=== PATIENT | female | born 1965 | race Caucasian/White ===

== ENCOUNTER 2018-09-18 01:49 | Outpatient (CLI) | payer BC, SELFPAY ==
[2018-09-18 14:46] LABS: Cholesterol 181 mg/dL (50-200); Glucose 91 mg/dL (70-100); HDL Cholesterol 68 mg/dL (40-60); LDL CHOLESTEROL 99 mg/dL (<100); Triglyceride 66 mg/dL (30-150)
== END 2018-09-18 02:09 ==
PROVIDERS: PCP Family Medicine; Visit Provider Obstetrics & Gynecology
DX: Z13.220 Encounter for screening for lipoid disorders (principal); Z13.1 Encounter for screening for diabetes mellitus
CPT/HCPCS: 36415; 80061; 82947; 83721

== ENCOUNTER 2019-07-23 00:28 | Outpatient (CLI) | payer BC, SELFPAY ==
--- NOTE | 2019-07-23 10:40 | DI.MAMMO_ITS ---
SYMPTOM/DIAGNOSIS: SCREENING Z12.39 MAMMOGRAM: 07/23 Mammograms were interpreted according to the usual protocol including computer analysis with CAD system, tomosynthesis and C view imaging. The breasts are heterogeneously dense. No dominant mass or clumped microcalcification is identified in either breast. The current examination is compared with previous examinations including May 2018 and there has been no gross interval change in appearance in comparison with the previous studies. CONCLUSION: No specific evidence of malignancy at this time. Routine screening examinations are suggested at yearly intervals due to the family history of breast carcinoma, Category 1, breast density category C. SA ASSESSMENT OF FINDINGS: Negative. Category 1. Patient will receive a letter notifying them of these results. Bi-RADS category C. The breasts are heterogeneously dense, which may obscure small masses.
== END 2019-07-23 00:48 ==
PROVIDERS: PCP Family Medicine; Visit Provider Obstetrics & Gynecology
DX: Z12.31 Encounter for screening mammogram for malignant neoplasm of breast (principal); Z80.3 Family history of malignant neoplasm of breast
CPT/HCPCS: 77063; 77067

== ENCOUNTER 2019-10-05 07:47 | Outpatient (CLI) | payer BC, SELFPAY ==
[2019-10-05 10:01] LABS: ALT 21 U/L (14-59); AST 10 U/L (15-37); Calculated LDL 101 mg/dL; Cholesterol 180 mg/dL (<200); HDL Cholesterol 71 mg/dL (40-60); Triglyceride 42 mg/dL (<150)
[2019-10-08 06:49] LABS: Vitamin D 25 Total 68.1 ng/ml (30-100)
== END 2019-10-05 08:07 ==
PROVIDERS: PCP Nurse Practitioner Family; Visit Provider Nurse Practitioner Family
DX: Z13.220 Encounter for screening for lipoid disorders (principal); E55.9 Vitamin D deficiency, unspecified
CPT/HCPCS: 36415; 80061; 82306; 84450; 84460

== ENCOUNTER 2020-07-28 01:18 | Outpatient (CLI) | payer BC, SELFPAY ==
--- NOTE | 2020-07-28 | DI.MAMMO_ITS ---
EXAM: MAMMO SCREENING CLINICAL HISTORY: SCREENING,Z12.39 TECHNIQUE: Mammograms were interpreted according to the usual protocol including computer analysis w [employer] CAD system, tomosynthesis and C-view imaging. COMPARISON: FINDINGS: The breasts are heterogeneously dense. No dominant mass or clumped microcalcification identified in either breast. Current examination is compared previous examinations including July 2019 and ere has been no gross interval change appearance comparison previous studies. IMPRESSION: No specific evidence of malignancy at this time. Routine screening examinations are suggested yearl y intervals due to the family history of breast carcinoma. BI-RADS Category 1 - Negative Breast Density - Category C - Heterogeneously dense
== END 2020-07-28 01:38 ==
PROVIDERS: PCP Nurse Practitioner Family; Visit Provider Obstetrics & Gynecology
DX: Z12.31 Encounter for screening mammogram for malignant neoplasm of breast (principal); R92.2 Inconclusive mammogram
CPT/HCPCS: 77063; 77067

== ENCOUNTER 2021-08-31 02:05 | Outpatient (CLI) | payer BC, SELFPAY ==
--- NOTE | 2021-08-31 08:50 | DI.MAMMO_ITS ---
Exam(s) MAMMO SCREENING EXAM: MAMMO SCREENING CLINICAL HISTORY: SCREENING, 11.13. TECHNIQUE: Bilateral full field digital CC and MLO mammographic images were obtained with 3D tomosyn thesis and utilizing computer aided detection (CAD). COMPARISON: Prior mammograms dating back to 2010, the most recent being July 2020. FINDINGS: There are no new spiculated masses nor malignant appearing microcalcification groups. There is no significant architectural distortion nor skin thickening-retraction. IMPRESSION: No radiographic evidence of malignancy. BI-RADS Category 1 - Negative Breast Density - Category B - Scattered areas of fibroglandular density Breast density Category C or D implies that the patient has dense breast tissue. Dense breast tissue can make it harder to find cancer on a mammogram. Dense breast tissue is also associated with an incr eased risk of breast cancer. This information about the result of the mammogram report was provided to the patient to raise their awareness. Use this report when you speak with the patient about their risks for breast cancer, which includes their family history. At that time, you may recommend additional screening tests (Ultrasoun d or MRI) as these tests may add significant information. A negative radiographic report should not delay biopsy if a dominant or clinically suspicious mass is present. Up to ten percent of cancers are not identified on mammography. A negative report may reinforce clinical impression. Adenosis and dense breasts may obscure an underlying neoplasm. False positive reports average 6 to 10%. Patient will receive a letter notifying them of these results.
== END 2021-08-31 02:25 ==
PROVIDERS: PCP Nurse Practitioner Family; Visit Provider Obstetrics & Gynecology
DX: Z12.31 Encounter for screening mammogram for malignant neoplasm of breast (principal)
CPT/HCPCS: 77063; 77067

== ENCOUNTER 2022-07-14 10:44 | Outpatient (REF) | payer BC, SELFPAY ==
--- OUTSIDE RECORDS SUMMARY | 2022-07-14 10:54 | XMS_ITS | Encounter Summary ---
:1965 Author Organization [facility] Address [address] [place] [address] Care Team Providers Name Role Phone Unavailable Primary Care Provider Unavailable Encounter Details Date Type Department Care Team Description 06/10/2006 Results Only [facility] - Addi Lucero MD Maple conversion [address] [place] [address] [place], [place] [id number] [phone] Social History Tobacco Use Types Packs/Day Years Used Date Never Assessed Sex Assigned at Date Recorded Not on file documented as of this encounter Plan of Treatment Not on filedocumented as of this encounter Procedures Procedure Name Priority Date/Time Associated Diagnosis Comme nts CYTOPATHOLOGY Routine 06/10/2006 0:00 EDT Results for this procedure are i n the results section . documented in this encounter Results CYTOPATHOLOGY (06/10/2006 0:00 EDT) Pathology Report: CYTOPATHOLOGY REPORT [facility] Reports generated via electronic interface contain french ginal data; however they are lacking the format of the original re port. Caution should be taken when reading/interpreting unfo rmatted reports. Name: ? UDAY LE D ? Accession #: ? [id number] : ? 1965 (Age: 40) ??F ?Collect Date: ? 05/15 Location: ? [facility] ? Receive Date : ? 06/15/2006 Provider: ?CJ LUCERO MD Copy to: ? Specimen/Source: ? ThinPrep Pap Test, Vagina/Cervix/Endocervix, processed on [employer] ThinPrep Imaging System, with manual evaluati on Last Menstrual Period: ? 1 wk ? SPECIMEN ADEQUACY ? Satisfactory for Evaluation - transformation zone component present GENERAL CATEGORIZATION ? Negative for Intraepithelial Lesion or Malignan cy INTERPRETATION ? Reactive cellular rebecca nges associated with inflammation present (includes repair). ? Document reviewed and electronically signed by: ? IRVIN DELATORRE MD ? Report Date: ??06/20/2006 16:03 End of Report Specimen Performing Organization Address City/State/ZIP Code Phon e Number [facility] [address] [place] [address] SERVICES [facility] [address] [place] [address] documented in this encounter Visit Diagnoses Not on filedocumented in this encounter
--- OUTSIDE RECORDS SUMMARY | 2022-07-14 10:54 | XMS_ITS | Encounter Summary ---
:[address] [facility] Address [address] [place] [address] Care Team Providers Name Role Phone Unknown, Provider Primary Care Provider Encounter Details Date Type Department Care Team Description 03/22/2011 Results Only [facility] Preston MD Laboratory Services - [address] [place] [address] [phone] Social History Tobacco Use Types Packs/Day Years Used Date Never Assessed Sex Assigned at Date Recorded Not on file documented as of this encounter Plan of Treatment Not on filedocumented as of this encounter Procedures Procedure Name Priority Date/Time Associated Diagnosis Comme [facility] SURGICAL PATHOLOGY Routine 03/22/2011 0:00 EDT Re sults for this procedure are i n the results section. documented in this encounter Results SURGICAL PATHOLOGY (03/22/2011 0:00 EDT) Pathology Report: SURGICAL PATHOLOGY REPORT ? [facility] Reports generated via electr [employer] interface contain original data; ? LAB however they are lacking the format of the original report. ? Caution should be taken when reading/interpreting unformatted reports. ? Name: ? LE, UDAY ? Accession #: ? [id number] ? : ? 1965 (Age: 45) ??F ? Collec t Date: ? 03/22/2011 ? Location: ? [facility] ? Re ceive Date: ? 03/23/2011 ? Provider: HOUSTON PRESOTN MD ? Copy to: MANNY HONG MD ? Final Pathologic Diagnosis: ? A. ?Duodenum, b ulb, biopsy: ? 1. ?No patholog ic features. ? B. ?Stomach, an trum, polypectomy: ? 1. ?Antral muco sa with prominent muscularis mucosa. ??See comment. ? C. ?Esophagus, 40 cm, biopsy: ? 1. ?Squamous an d gastric mucosa with chronic inflammation and reactive ?? changes. ? 2. ? No intestinal metap lasia identified. ? 3. ? No dysplasia identi fied. ? D. ?Esophagus, 39 cm, biopsy: ? 1. ?Squamous mu cosa with reactive changes. ? 2. ? No significant infl ammation identified. ? Comment: ? Deeper levels were ex amined on specimen (B). There is prominent smooth ? muscle which may represent a small leiomyoma versus tangential sectioning ? through muscularis propria. ??Deeper levels were also examined on specimen (D). ?? (Dr. Craft)/mpl ? Document reviewed and electr onically signed by: ? RAMEZ CRAFT MD ? Report ??Date: 03/25/2011 15 :28 ? By the signature above, the attending physician certifies that he/she has ? personally conducted a gross and/or microscopic examination of the described ? specimens and rendered or co nfirmed the above diagnosis. ? Specimen(s) Received: ? A. ?Duodenal bu lb ? B. ? Polyp antrum ? C. ? Esophagus @ 40 cm ? D. ? Esophagus @ 39 cm ? Clinical History: ? GERD ? Gross Description: ? Received in formalin labelled Uday Le and duodenal bulb is a ?? single, 0.3 x 0.3 x 0.2 cm, pink-alan, irregular soft tissue submitted in toto as (A). ? Received in formalin saima Uday Farr and small polyp antrum is a ?? single, 0.3 x 0.2 x 0.2 cm, pink-alan, irregular soft tissue submitted in toto as (B). ? Received in formalin saima Uday Farr and esophagus at 40 cm are ?? two alan-white, irregular sof t tissues, 0.2 x 0.1 x 0.1 cm and 0.3 x 0.3 x 0.2 ?? cm, submitted in toto as (C) . ? Received in formalin saima d Uday Le and esophagus at 39 cm is a ?? 0.3 x 0.2 x 0.1 cm, jay e, irregular soft tissue submitted in toto as (D). ?? (Trenton Johnson)/[facility] ? End of Report ? Specimen Performing Organization Address City/State/ZIP Code Phon e Number [facility] [address] [place] [address] SERVICES [facility] [address] [place] [address] documented in this encounter Visit Diagnoses Not on filedocumented in this encounter Care Teams Cold Storage Supervisor Relationship Specialty Start Date End Date Unknown, Provider, PCP - General 03/23/11 03/24/11 documented as of this encounter
--- OUTSIDE RECORDS SUMMARY | 2022-07-14 10:54 | XMS_ITS | Encounter Summary ---
:1965 Author Organization [place] [address] Care Team Providers Name Role Phone Justin Xavier DO Primary Care Provider Encounter Details Date Type Department Care Team Description 08/23/2019 External Results Medical Records Provider, [place] [address] Social History Tobacco Use Types Packs/Day Years Used Date Never Assessed Sex Assigned at Date Recorded Not on file documented as of this encounter Plan of Treatment Not on filedocumented as of this encounter Procedures Procedure Name Priority Date/Time Associated Diagnosis Comme nts SURGICAL PATHOLOGY Routine 08/23/2019 Results f or this SCAN procedure are i n the results section . documented in this encounter Results Scan Doc: Surgical Pathology (08/23/2019) Narrative This result has an attachment that is no t available. Historical Provider MD KHAN MGR SCAN EXT ORDR/RSLT documented in this encounter Visit Diagnoses Not on filedocumented in this encounter Care Teams Edge Worker Relationship Specialty Start Date End Date Justin Xavier DO PCP - General 10/06/[address] [place] [address] documented as of this encounter
--- OUTSIDE RECORDS SUMMARY | 2022-07-14 10:54 | XMS_ITS | Encounter Summary ---
:1965 Author Organization [facility] Address [address] [place] [address] Care Team Providers Name Role Phone Unavailable Primary Care Provider Unavailable Encounter Details Date Type Department Care Team Description 07/29/2008 [facility] Addi Corley MD Converted Visit Maple conversion [address] [facility] [address] [place] [address] [place], [place] [id number] [phone] Social History Tobacco Use Types Packs/Day Years Used Date Never Assessed Sex Assigned at Date Recorded Not on file documented as of this encounter Plan of Treatment Not on filedocumented as of this encounter Procedures Procedure Name Priority Date/Time Associated Diagnosis Comme [facility] CYTOPATHOLOGY Routine 07/29/2008 0:00 EDT Results for this procedure are i n the results section . documented in this encounter Results CYTOPATHOLOGY (07/29/2008 0:00 EDT) Pathology Report: CYTOPATHOLOGY REPORT ? [facility] Reports generated via electr onic interface contain original data; ? however they are lacking the format of the original report. ? Caution should be taken when reading/interpreting unformatted reports. ? Name: ? LE, UDAY D ? Accession #: ? [id number] ? : ? 1965 (Age: 42) ??F ?Collect Date: ? 07/29/2008 ? Location: ? [facility] ? Receive Date: ? 07/31/2008 ? Provider: ?CJ P CHAS TER MD ? Copy to: ? Specimen/Source: ? ThinPrep Pap Test, Vagina/Cervix/Endocervix, processed ?? on [employer] ThinPrep Imaging Sy stem, with manual evaluation ? Last Menstrual Period: ? 2 weeks ? Previous Gynecologic Patholo gy: ? Yes: benign pap Hx ? Other: ? HPVA - HPV testing requested if ASC-US on the current ThinPrep Pap test. ? SPECIMEN ADEQUACY ? Satisfactory for Eval uation ? - transformation zone compon ent present ? GENERAL CATEGORIZATION ? Negative for Intraepi thelial Lesion or Malignancy ? Document reviewed and electr onically signed by: ? John Hardy, CT( CP) ? Report Date: ??09/19/ 2008 12:59 ? End of Report ? Specimen Performing Organization Address City/State/ZIP Code Phon e Number [facility] [address] [place] [address] SERVICES [facility] [address] [place] [address] documented in this encounter Visit Diagnoses Not on filedocumented in this encounter
--- OUTSIDE RECORDS SUMMARY | 2022-07-14 10:54 | XMS_ITS | Encounter Summary ---
:1965 Author Organization [facility] [place] [address] Care Team Providers Name Role Phone Justin Xavier DO Primary Care Provider Encounter Details Date Type Department Care Team Description 08/22/2019 [place] [address] Social History Tobacco Use Types Packs/Day Years Used Date Never Assessed Sex Assigned at Date Recorded Not on file documented as of this encounter Medications at Time of Discharge Medication Sig Dispensed Refills Start Date End Date ALUMINUM CHLORIDE (DRYSOL 0 12/09/2006 DAB-O-MATIC TOP) SUMAtriptan (IMITREX) 50 mg 0 12/09/19 07 tablet fexofenadine-pseudoephedrin 1 Tablet(s), PO, 0 e (KATHERINE-D 24 HOUR) Once daily,PRN 180-240 mg per 24 hr tablet documented as of this encounter Plan of Treatment Not on filedocumented as of this encounter Procedures Procedure Name Priority Date/Time Associated Diagnosis Comme [facility] SURGICAL PATHOLOGY Routine 08/22/2019 4:15 PM Res ults for this REPORT EDT procedure are i n the results section. documented in this encounter Results Surgical Pathology Report (08/22/2019 4:15 PM EDT) Component Value Ref Test Analysis Performed At [facility] Method Time Signature Surgical [id number] ? Location: [facility] Pathology FREEMAN Report The signing pathologist has (i) examined the relevant preparation(s) for the [facility] specimen(s) and (ii) rendered or confirmed the diagnosis(es) . HOSP[facility] . ?Surgic al Pathology DIAGNOSIS Rectum, ??polypectomy: Tubular adenoma CR-PX Electronically signed by: ??Gopal Carlin MD, I Verified: ??08/27/2019 ?Pathologist Performed at: ??-[facility] [place] Dept. of [place]ology, [place], [place] CLINICAL INFORMATION Specimen Submitted: A - Rectal polyp Clinical History and Diagnosis: Screening colonoscopy SPECIMEN PROCESSING A - Labeled/Fixative: Rectal polyp, formalin. Quantity/Size: Single, 0.4 cm. Tissue Description: Slightly firm, alan-pink polyp. Sections/Processing: Inked, bisected and entirely submitted in 1 cassette labeled A1. ??apb Specimen (Source) Anatomical Collection Method Collection Time Re ceived Time Location / / Volume Laterality 08/22/2019 4:15 PM EDT Jaron Mike DO PATHOLOGY/CYTOLOGY ORDERABL ES Performing Organization Address City/State/[place] [address] [facility] [address] documented in this encounter Visit Diagnoses Not on filedocumented in this encounter Care Teams Supervisor Sawmill Relationship Specialty Start Date End Date Justin Xavier DO PCP - General 10/06/[address] [place] [address] documented as of this encounter
--- OUTSIDE RECORDS SUMMARY | 2022-07-14 10:54 | XMS_ITS | Encounter Summary ---
:1965 Author Organization [facility] Address [address] [place] [address] Care Team Providers Name Role Phone Unavailable Primary Care Provider Unavailable Encounter Details Date Type Department Care Team Description 08/31/2010 Results Only [facility] Cj Corley MD Laboratory Services - [address] [place] [id number] [address] [facility] [place] [address] [phone] Social History Tobacco Use Types Packs/Day Years Used Date Never Assessed Sex Assigned at Date Recorded Not on file documented as of this encounter Plan of Treatment Not on filedocumented as of this encounter Procedures Procedure Name Priority Date/Time Associated Diagnosis Comme nts CYTOPATHOLOGY Routine 08/31/2010 0:00 EDT Results for this procedure are i n the results section . documented in this encounter Results CYTOPATHOLOGY (08/31/2010 0:00 EDT) Pathology Report: CYTOPATHOLOGY REPORT ? [facility] ? [facility] Reports generated via [employer] interface contain original data; ? however they are lacking the format of the original report. ? Caution should be taken when reading/interpreting unformatted reports. ? Name: ? LE, UDAY D ? Accession #: ? [id number] ? : ? 1965 (Age: 44) ??F ?Collect Date: ? 08/31/2010 ? Location: ? [facility] ? Receive Date: ? 09/02/2010 ? Provider: ?CJ P CHAS TER MD ? Copy to: ? Specimen/Source: ? Pap Test, Vagina/Cervix/Endocervix, ThinPrep Imaging ? System with manual evaluatio n ? Last Menstrual Period: ? 10/06/10 ? Other: ? Additional clinical informat ion: Benign Pap Hx. ? SPECIMEN ADEQUACY ? Satisfactory for Eval uation ? - transformation zone compon ent present ? GENERAL CATEGORIZATION ? Negative for Intraepi thelial Lesion or Malignancy ? Document reviewed and electr onically signed by: ? Milagro Erwin, CT(A SCP) ? Report Date: ??10/22/ 2010 14:46 ? End of Report ? Specimen Performing Organization Address City/State/[facility] Code Phon e Number [facility] [address] [place] [address] SERVICES [facility] [address] [place] [address] documented in this encounter Visit Diagnoses Not on filedocumented in this encounter
[2022-07-14 18:06] LABS: ALT 25 U/L (14-59); AST 13 U/L (15-37); Alkaline Phosphatase 59 U/L (46-116); Anion Gap 8.4 mmol/L (3-11); BUN 20 mg/dL (7-18); Bilirubin, Total 0.4 mg/dL (0.2-1.0); CO2 27.6 mmol/L (21.0-32.0); CREATININE 0.7 mg/dL (0.55-1.02); Calcium 9.2 mg/dL (8.5-10.1); Chloride 104 mmol/L (98-107); Estimated GFR 102.71 (mL/min/1.73m2); Glucose 85 mg/dL (74-106); Potassium 4.6 mmol/L (3.5-5.1); Sodium 140 mmol/L (136-145); Total Protein 7.7 g/dL (6.4-8.2)
[2022-07-14 18:12] LABS: HCT 42.5 % (36.0-46.0); HGB 14.3 g/dL (11.2-15.7); MCH 29.9 pg (27.0-33.0); MCHC 33.6 % (32.0-36.0); MCV 89 fL (80-95); MPV 11.2 fL (8.0-11.0); Platelet Count 317 10^3/uL (130-400); RBC 4.79 10^6/uL (3.93-5.22); RDW 12.9 % (11.7-14.6); RDW-SD 42.4 fL; WBC 6.95 10^3/uL (4.4-10.8)
[2022-07-15 04:50] LABS: Vitamin D 25 Total 62.9 ng/mL (30-100)
== END 2022-07-14 10:45 | disposition home or self-care (01) ==
LOC: NCHCN 10:44
PROVIDERS: PCP Nurse Practitioner Family; Visit Provider Nurse Practitioner Family
DX: M79.10 Myalgia, unspecified site (principal)
CPT/HCPCS: 80053; 82306; 85027

== ENCOUNTER → 2022-09-02 03:14 | Outpatient (CLI) | payer BC, SELFPAY ==
--- NOTE | 2022-09-02 08:16 | DI.RAD_ITS ---
Exam(s) XR FOOT RT COMPLETE EXAM: XR FOOT RT COMPLETE CLINICAL HISTORY: R foot pain, tendinitis of ankle, m77.50 TECHNIQUE: COMPARISON: No exams were available for comparison FINDINGS: Three views were obtained. Bony alignment appears within normal limits. There is a plantar fascia a ttachment enthesophyte of the calcaneus. No other bony or soft tissue abnormality seen. IMPRESSION: RADIATION DOSE DELIVERED: Total DLP
== END ==
PROVIDERS: PCP Nurse Practitioner Family; Visit Provider Podiatrist Foot & Ankle Surgery
DX: M77.51 Other enthesopathy of right foot and ankle (principal)
CPT/HCPCS: 73630

== ENCOUNTER 2022-09-29 22:20 | Outpatient (REF) | payer BC, SELFPAY ==
[2022-09-29 20:43] LABS: ESR < 1 mm/hr (0-30)
[2022-09-30 17:18] LABS: Rheumatoid Factor <8.6 IU/mL (<12.0)
[2022-10-01 11:40] LABS: Lyme Ab w Rflx to Lyme Confirm Negative (Negative)
== END 2022-09-29 22:21 | disposition home or self-care (01) ==
LOC: NCHCN 22:20
PROVIDERS: PCP Nurse Practitioner Family; Visit Provider Nurse Practitioner Family
DX: M79.18 Myalgia, other site (principal)
CPT/HCPCS: 85652; 86617; 86431; 86618

== ENCOUNTER → 2022-10-01 00:44 | Outpatient (CLI) | payer BC, SELFPAY ==
--- NOTE | 2022-10-01 08:20 | DI.MAMMO_ITS ---
Exam(s) MAMMO SCREENING EXAM: MAMMO SCREENING CLINICAL HISTORY: SCREENING, Z12.31. TECHNIQUE: Bilateral full field digital CC and MLO mammographic images were obtained with 3D tomosyn thesis and utilizing computer aided detection (CAD). COMPARISON: Prior mammograms were reviewed. FINDINGS: There has been no significant change in the appearance and distribution of the fibroglandular tissue. Asymmetric tissue in the right breast is unchanged from prior studies. There are no new spiculated masses nor malignant appearing microcalcification groups. There is no significant architectural distortion nor skin thickening-retraction. IMPRESSION: No radiographic evidence of malignancy. BI-RADS Category 1 - Negative Breast Density - Category B - Scattered areas of fibroglandular density Breast density Category C or D implies that the patient has dense breast tissue. Dense breast tissue can make it harder to find cancer on a mammogram. Dense breast tissue is also associated with an incr eased risk of breast cancer. This information about the result of the mammogram report was provided to the patient to raise their awareness. Use this report when you speak with the patient about their risks for breast cancer, which includes their family history. At that time, you may recommend additional screening tests (Ultrasoun d or MRI) as these tests may add significant information. A negative radiographic report should not delay biopsy if a dominant or clinically suspicious mass is present. Up to ten percent of cancers are not identified on mammography. A negative report may reinforce clinical impression. Adenosis and dense breasts may obscure an underlying neoplasm. False positive reports average 6 to 10%. Patient will receive a letter notifying them of these results.
== END ==
PROVIDERS: PCP Nurse Practitioner Family; Visit Provider Obstetrics & Gynecology
DX: Z12.31 Encounter for screening mammogram for malignant neoplasm of breast (principal)
CPT/HCPCS: 77063; 77067

== ENCOUNTER 2023-02-11 10:32 | Outpatient (CLI) | payer BC, SELFPAY ==
--- NOTE | 2023-02-11 09:00 | DI.RAD_ITS ---
Exam(s) XR KNEE RT 3V AP,LAT,KATELIN EXAM: XR KNEE RT 3V AP,LAT,KATELIN CLINICAL HISTORY: eval R medial knee pain. TECHNIQUE: 2D digital imaging was performed. Three views. COMPARISON: CR XR KNEE 4 VIEW RIGHT from 10/04/2019 FINDINGS: BONES: No acute fracture is present. No bony destructive lesion is seen. JOINTS: Moderate narrowing medial femoral tibial joint space and mild periarticular spurring. Minima l spurring at the patella. No joint effusion is seen. SOFT TISSUE: Mildly prominent venous varicosities. IMPRESSION: Moderate degenerative changes. DATA REPOSITORY: RADIATION DOSE DELIVERED:
== END 2023-02-11 10:33 | disposition home or self-care (01) ==
LOC: DIORS 10:33
PROVIDERS: PCP Nurse Practitioner Family; Referring Provider Nurse Practitioner Family; Visit Provider Student in an Organized Health Care Education/Training Program
DX: M25.561 Pain in right knee (principal); M25.861 Other specified joint disorders, right knee
CPT/HCPCS: 73562

== ENCOUNTER 2023-02-25 12:55 | Outpatient (CLI) | payer BC, SELFPAY ==
--- NOTE | 2023-02-25 12:00 | DI.RAD_ITS ---
Exam(s) XR WRIST RT COMPLETE EXAM: XR WRIST RT COMPLETE CLINICAL HISTORY: evaluate pathology M79.601 PAIN RT ARM. TECHNIQUE: 2D digital imaging was performed. Three views. COMPARISON: No exams were available for comparison FINDINGS: BONES: No acute fracture is present. No bony destructive lesion is seen. JOINTS: The carpal bones are normally aligned. SOFT TISSUE: Normal. IMPRESSION: Unremarkable radiographs of the right wrist. DATA REPOSITORY: RADIATION DOSE DELIVERED:
--- NOTE | 2023-02-25 12:00 | DI.RAD_ITS ---
Exam(s) XR FOREARM RT XR ELBOW RT COMPLETE EXAM: XR ELBOW RT COMPLETE CLINICAL HISTORY: evaluate pathology M79.601. TECHNIQUE: 2D digital imaging was performed. Four views of the elbow two views of the forearm. COMPARISON: CR XR FOREARM RT from 02/25/2023 FINDINGS: BONES: Nondisplaced fractures seen extending transversely through the neck of the proximal radius. N o visible extension to the articular surface. No additional fractures are seen in the distal humerus or forearm.. No bony destructive lesion is seen. JOINTS: The elbow is normally aligned. A joint effusion is seen. SOFT TISSUE: Normal. IMPRESSION: Nondisplaced radial head fracture. DATA REPOSITORY: RADIATION DOSE DELIVERED:
== END 2023-02-25 13:15 ==
LOC: DI 12:58
PROVIDERS: PCP Nurse Practitioner Family; Visit Provider Nurse Practitioner Family
DX: M79.601 Pain in right arm (principal); S52.125A Nondisplaced fracture of head of left radius, initial encounter for closed fracture
CPT/HCPCS: 73080; 73090; 73110

== ENCOUNTER 2023-03-14 15:40 | Outpatient (CLI) | payer BC, SELFPAY ==
--- NOTE | 2023-03-14 15:30 | DI.RAD_ITS ---
Exam(s) XR ELBOW RT COMPLETE EXAM: XR ELBOW RT COMPLETE CLINICAL HISTORY: F/U FX. TECHNIQUE: 2D digital imaging was performed of the left elbow. Three images were obtained. AP, lat eral and oblique views were obtained. COMPARISON: CR XR ELBOW RT COMPLETE from 02/25/2023 FINDINGS: BONES: There has been no change in the radial head fracture. No bony destructive lesion is seen. JOINTS: The elbow is normally aligned. There is a small joint effusion. SOFT TISSUE: Normal. IMPRESSION: Stable alignment of the radial head fracture. DATA REPOSITORY: RADIATION DOSE DELIVERED:
== END 2023-03-14 15:41 | disposition home or self-care (01) ==
LOC: DIORS 15:40
PROVIDERS: PCP Nurse Practitioner Family; Visit Provider Physician Assistant
DX: S52.124A Nondisplaced fracture of head of right radius, initial encounter for closed fracture (principal)
CPT/HCPCS: 73080

== ENCOUNTER 2023-07-11 16:45 | Outpatient (REF) | payer SELFPAY | END 2023-07-11 16:46 | disposition home or self-care (01) | LOC: NCHCN 16:45 | PROVIDERS: PCP Nurse Practitioner Family; Visit Provider Family Medicine | DX: R35.0 Frequency of micturition (principal) | CPT/HCPCS: 87086 ==

== ENCOUNTER → 2023-07-15 01:42 | Outpatient (CLI) | payer OTHER, SELFPAY ==
--- NOTE | 2023-07-15 10:53 | DI.RAD_ITS ---
Exam(s) XR CERVICAL SPINE COMP 4-5V EXAM: XR CERVICAL SPINE COMP 4-5V CLINICAL HISTORY: NECK AND BACK PAIN M54.2, UPPER BACK PAIN, M54.9. TECHNIQUE: 2D digital imaging was performed. Seven images were obtained. AP, odontoid, lateral and b ilateral oblique images were obtained. COMPARISON: No exams were available for comparison FINDINGS: The odontoid is intact. The lateral masses are well aligned. There is normal alignment of the cervi mary spine. There is disc space narrowing and endplate osteophytes at C5-6 and C6-C7. No acute fractur e or subluxation is present. There is mild neural foraminal narrowing on the right at C5-6 and on the left at C6-C7. The cervical thoracic junction is well maintained. The prevertebral soft tissues are unremarkable. Lung apices are clear. IMPRESSION: Mild cervical spondylosis. DATA REPOSITORY: RADIATION DOSE DELIVERED:
--- NOTE | 2023-07-15 10:53 | DI.RAD_ITS ---
Exam(s) XR THORACIC SPINE COMPLETE EXAM: XR THORACIC SPINE COMPLETE CLINICAL HISTORY: NECK AND BACK PAIN, M54.2, UPPER BACK PAIN, M54.9. TECHNIQUE: 2D digital imaging was performed of the thoracic spine. Three views were obtained. AP, swimmer's and lateral views were obtained. COMPARISON: No exams were available for comparison FINDINGS: BONES: There is no fracture or destructive lesion. There endplate osteophytes seen at multiple levels of the thoracic spine. DISKS:Alignment is within normal limits. There is mild disc space narrowing seen in several levels in the midthoracic spine. SOFT TISSUE: Visualized lungs are clear. IMPRESSION: Mild degenerative changes seen in the thoracic spine. DATA REPOSITORY: RADIATION DOSE DELIVERED:
--- NOTE | 2023-07-15 10:53 | DI.RAD_ITS ---
Exam(s) XR LUMBAR SPINE COMPLETE EXAM: XR LUMBAR SPINE COMPLETE CLINICAL HISTORY: BACK PAIN, M54.9, NECK AND BACK PAIN, M54.2, UPPER BACK PAIN, M54.9. TECHNIQUE: 2D digital imaging was performed of the lumbar spine. Five images were obtained. AP, la teral, right oblique, left oblique and L5-S1 spot views were obtained. COMPARISON: No exams were available for comparison FINDINGS: BONES: No fracture or destructive lesion. Endplate osteophytes are seen at L4-L5. No facet hypertroph y identified. DISKS: There is disc space narrowing at L4-L5. ALIGNMENT: Lumbar spinal alignment is within normal limits. No spondylolysis or spondylolisthesis. SOFT TISSUE: Normal. IMPRESSION: Degenerative changes seen at the L4-L5 disc level. DATA REPOSITORY: RADIATION DOSE DELIVERED:
== END ==
PROVIDERS: PCP Nurse Practitioner Family; Visit Provider Nurse Practitioner Family
DX: M51.05 Intervertebral disc disorders with myelopathy, thoracolumbar region (principal); M47.892 Other spondylosis, cervical region
CPT/HCPCS: 72050; 72072; 72110

== ENCOUNTER 2023-07-15 16:01 | Outpatient (REF) | payer OTHER, SELFPAY ==
[2023-07-15 16:32] LABS: HCT 44.9 % (36.0-46.0); HGB 14.8 g/dL (11.2-15.7); MCH 29.1 pg (27.0-33.0); MCV 88 fL (80-95); MPV 10.9 fL (8.0-11.0); Platelet Count 291 10^3/uL (130-400); RBC 5.09 10^6/uL (3.93-5.22); RDW 13.1 % (11.7-14.6); RDW-SD 42.9 fL; WBC 5.61 10^3/uL (4.4-10.8)
[2023-07-15 16:46] LABS: ALT 24 U/L (14-59); AST 10 U/L (15-37); Albumin 4.3 g/dL (3.4-5.0); Alkaline Phosphatase 65 U/L (46-116); Anion Gap 6.6 mmol/L (3-11); BUN 12 mg/dL (7-18); Bilirubin, Total 0.7 mg/dL (0.2-1.0); CO2 30.4 mmol/L (21.0-32.0); CREATININE 0.8 mg/dL (0.55-1.02); Calcium 9.7 mg/dL (8.5-10.1); Calculated LDL 115 mg/dL (<100); Chloride 102 mmol/L (98-107); Cholesterol 205 mg/dL (<200); Estimated GFR 86.96 (mL/min/1.73m2); Glucose 89 mg/dL (74-106); HDL Cholesterol 79 mg/dL (40-60); Potassium 4.6 mmol/L (3.5-5.1); Sodium 139 mmol/L (136-145); TSH (W/Ref FT4) 1.24 uIU/mL (0.36-3.74); Triglyceride 59 mg/dL (<150)
== END 2023-07-15 16:02 | disposition home or self-care (01) ==
LOC: NCHCN 16:01
PROVIDERS: PCP Nurse Practitioner Family; Visit Provider Nurse Practitioner Family
DX: Z00.00 Encounter for general adult medical examination without abnormal findings (principal); Z13.220 Encounter for screening for lipoid disorders; Z13.0 Encounter for screening for diseases of the blood and blood-forming organs and certain disorders involving the immune mechanism; Z13.228 Encounter for screening for other metabolic disorders
CPT/HCPCS: 80053; 80061; 85027; 84443

== ENCOUNTER → 2023-09-26 01:45 | Outpatient (CLI) | payer OTHER, SELFPAY ==
--- NOTE | 2023-09-26 12:40 | DI.MRI_ITS ---
Exam(s) MR CERVICAL SPINE WO EXAM: MR CERVICAL SPINE WO CLINICAL HISTORY: NARROWING OF INTERVERTEBRAL DISC SPACE, M99.79, NECK AND BACK PAIN, M54.2 TECHNIQUE: Multiplanar multisequence MRI of the cervical spine was performed without intravenous con trast. COMPARISON: CR XR CERVICAL SPINE COMP 4-5V from 07/15/2023 FINDINGS: CERVICOMEDULLARY JUNCTION: Intact with no evidence of cerebellar tonsillar ectopia. No obvious abnor mality of the odontoid process. No evidence of Chiari 1 malformation. CERVICAL SPINAL CORD: There is no abnormal signal in the cervical spinal cord and no evidence of foca l cord atrophy nor focal cord swelling. OSSEOUS:There are no cervical fractures evident. No significant osseous lesions in the cervical vert ebrae. No loss of the normal cervical curvature. INDIVIDUAL LEVELS: C2-3: No disc herniation nor central canal stenosis. No foraminal stenosis. No facet arthropathy. C3-4: No disc herniation nor central canal stenosis.Mild bilateral facet arthropathy. No foraminal s tenosis. C4-5: No disc herniation nor central canal stenosis.Mild left facet arthropathy. Right facet unremar kable. No obvious foraminal stenosis on either side. C5-6: This level exhibits chronic advanced disc space narrowing and there are bilateral Luschka joint -disc complexes. There is no central spinal canal stenosis. No significant facet arthropathy eviden t. However there is is mild bilateral foraminal stenosis due to the bilateral disc-Luschka joint ost eophyte complexes. C6-7: This level also exhibits chronic advanced disc space narrowing Modic type 2 sub endplate fatty marrow changes seen. There are small bilateral Luschka joint-disc complexes. No prominent disc coleman iation. No central canal stenosis. Facet joints appear unremarkable. There is very minimal foramin al stenosis bilaterally at this level. C7-T1: No disc herniation nor central canal stenosis. No facet arthropathy.No foraminal stenosis. IMPRESSION: 1. There is chronic degenerative disc disease at C5-6 and C6-7 levels, as described above. There is small bilateral disc-Luschka joint osteophytes at these 2 levels causing some mild bilateral relative ly symmetrical foraminal stenosis at these levels. There is no large focal disc herniation. No cent ral canal stenosis and no loss of the normal curvature of the cervical spine. No evidence of myeliti s signal in the cervical spinal cord and no evidence of focal cord swelling nor focal cord atrophy. 2. There are only mild degenerative changes in the facet joints in the cervical spine. DATA REPOSITORY:
--- NOTE | 2023-09-26 13:15 | DI.MRI_ITS ---
Exam(s) MR THORACIC SPINE WO EXAM: MR THORACIC SPINE WO CLINICAL HISTORY: NARROWING INTERVERTEBRAL DISC SPACE, M99.79, NECK AND BACK PAIN, M54.2 TECHNIQUE: Multiplanar multisequence MRI of the thoracic spine was performed without intravenous con trast. COMPARISON: Plain films of 07/15/2023 were reviewed. FINDINGS: OSSEOUS: There are no acute appearing thoracic vertebral fractures. There are no ominous osseous les ions in the thoracic vertebrae. THORACIC SPINAL CORD: There is no abnormal signal in the cervical spinal cord and no evidence of foca l cord atrophy nor focal cord swelling. There is no evidence of syringomyelia nor significant spinal cord dysraphism. There is no evidence of mass at the conus medullaris. The position of the conus me dullaris is at lower T12 level. SIGNIFICANT INDIVIDUAL LEVEL FINDINGS: At T7-T8 level there is a small central subligamentous disc protrusion. This slightly indents the th ecal sac. No prominent central canal stenosis at this level. No abnormal signal evident within thor acic spinal cord at this level. At T3-4 level there is also a tiny central subligamentous disc bulge. No significant mass effect upo n the thecal sac and spinal cord. No other disc findings of significance in the thoracic column. Also no evidence of foraminal stenosi s in the thoracic spinal column PARASPINAL TISSUES: No significant masses nor fluid collections evident. IMPRESSION: 1. Small central subligamentous disc protrusion at T7-T8 level and even smaller central subligamentou s disc bulge at T3-4 level. There are no large disc herniations nor other significant epidural findi ngs in thoracic spinal column. There is no evidence of central canal stenosis and no evidence of for aminal stenosis. 2. Thoracic spinal cord appears unremarkable as does the conus medullaris. 3. No fractures nor abnormal marrow signal evident in the thoracic vertebrae. DATA REPOSITORY:
== END ==
PROVIDERS: PCP Nurse Practitioner Family; Visit Provider Nurse Practitioner Family
DX: M51.34 Other intervertebral disc degeneration, thoracic region (principal); M50.322 Other cervical disc degeneration at C5-C6 level
CPT/HCPCS: 72141; 72146

== ENCOUNTER → 2023-10-03 03:11 | Outpatient (CLI) | payer OTHER, SELFPAY ==
--- NOTE | 2023-10-03 | DI.MAMMO_ITS ---
Exam(s) MAMMO SCREENING EXAM: MAMMO SCREENING CLINICAL HISTORY: SCREENING, Z12.39 TECHNIQUE: Mammograms were interpreted according to the usual protocol including computer analysis w [employer] CAD system, tomosynthesis and C-view imaging. COMPARISON: 2014 through 2021 FINDINGS: The breasts are composed of scattered fibroglandular densities, Breast Density category B. No suspicious masses or suspicious microcalcifications are seen. No skin thickening or abnormal axillary lymph nodes are seen. There has been no significant change from prior exams. IMPRESSION: BI-RADS Category 1, Negative mammogram Yearly screening mammography is recommended. Breast Density - Category B, scattered fibroglandular densities. A negative radiographic report should not delay biopsy if a dominant or clinically suspicious mass is present. Up to ten percent of cancers are not identified on mammography. A negative report may reinforce clinical impression. Adenosis and dense breasts may obscure an underlying neoplasm. False positive reports average 6 to 10%. Patient will receive a letter notifying them of these results.
== END ==
PROVIDERS: PCP Nurse Practitioner Family; Visit Provider Nurse Practitioner Family
DX: Z12.31 Encounter for screening mammogram for malignant neoplasm of breast (principal)
CPT/HCPCS: 77063; 77067

== ENCOUNTER 2023-10-25 14:03 | Outpatient (CLI) | payer OTHER, SELFPAY ==
--- NOTE | 2023-10-25 08:00 | DI.RAD_ITS ---
Exam(s) XR STANDING ALIGNMENT EXAM: XR STANDING ALIGNMENT CLINICAL HISTORY: RIGHT KNEE PAIN. TECHNIQUE: 2D digital imaging was performed. Standing AP views were performed from the pelvis throu gh the ankles. COMPARISON: CR XR KNEE RT 3V AP,LAT,KATELIN from 02/11/2023 FINDINGS: BONES: No acute fracture is present. No bony destructive lesion is seen. Leg length discrepancy: No significant overall leg length discrepancy. JOINTS: Knees: Moderate narrowing of the medial femoral tibial joint space and mild periarticular spu rring. Minimal degenerative changes of the left knee. Ankles: Narrowing of the medial tibial talar joint space on the right. The hip joints are unremarkable. SOFT TISSUE: Venous varicosities, right greater than left.. IMPRESSION: Degenerative changes of the right knee. No significant leg length discrepancy. DATA REPOSITORY: RADIATION DOSE DELIVERED:
== END 2023-10-25 14:04 | disposition home or self-care (01) ==
LOC: DIORS 14:03
PROVIDERS: PCP Nurse Practitioner Family; Visit Provider Student in an Organized Health Care Education/Training Program
DX: M17.11 Unilateral primary osteoarthritis, right knee (principal)
CPT/HCPCS: 77073

== ENCOUNTER 2024-03-30 06:01 | Day surgery (SDC) | payer OTHER, SELFPAY ==
[2024-03-30] VITALS (12 sets, daily range): BP systolic 129–151; BP diastolic 63–98; PULSE 75–89; RESP 10–19; TEMP 36.3–36.6; O2SAT 97–100; BMI 26.2
[2024-03-30] MEDS: Gabapentin 300 MG CAP PO (06:32)
[2024-03-30] MEDS: Acetaminophen 500 MG TAB 1000 MG PO (06:32)
[2024-03-30] MEDS: Celecoxib 200 MG CAP 400 MG PO (06:32)
--- NOTE | 2024-03-30 06:38 | W.ANESPRE ---
General Info Date of Service Date Performed: 03/30/24 Height: 5 ft 7 in Weight: 76.1 kg Body Mass Index (BMI): 26.2 Surgical Procedure: Operation Date: 03/30/24 08:00 Proposed Procedure Side Surgeon p Medial Unicondylar Knee Arthroplasty Right Juan Jose Ramos MD Meds Allergies and Home Medications Allergies Allergy/AdvReac Type Severity Reaction Status Date / Time No Known Allergies Allergy Unverified 03/30/24 06:15 Home Medication Medication Instructions Recorded sumatriptan succinate 50 mg tablet 50 mg PO ONCE PRN 12/06/13 (Imitrex) loratadine-pseudoephedrine ER 10 1 PRN 07/25/15 mg-240 mg tablet,extended [id number] (Claritin-D 24 Hour) calcium carbonate (Calcium 600) 600 mg PO DAILY 09/02/22 cholecalciferol (vitamin D3) 50 50 mcg PO DAILY 09/02/22 mcg (2,000 unit) capsule duloxetine 30 mg capsule,delayed 30 mg PO DAILY 10/25/23 release loratadine 10 mg tablet (Claritin) 10 mg PO DAILY PRN 03/28/24 aspirin 81 mg capsule 81 mg PO BID prevent blood clot 30 03/30/24 days #60 caps naproxen 250 mg tablet 250 - 500 mg (1 - 2 x 250 mg) PO 03/30/24 BID PRN moderate pain and swelling #40 tabs oxycodone 5 mg tablet 5 - 10 mg (1 - 2 x 5 mg) PO .q4-6h 03/30/24 PRN severe pain #18 tabs Current Visit Medications: Current Medications Generic Name Dose Route Start Last Admin Trade Name Leyda PRN Reason Stop Dose Admin Acetaminophen 1,000 mg 03/30/24 06:00 03/30/24 06:32 Acetaminophen 500 Mg Tab PO 03/30/24 16:00 1,000 mg PREOP FRANCISCA Administration Celecoxib 400 mg 03/30/24 06:00 03/30/24 06:32 Celecoxib 200 Mg Cap PO 03/30/24 16:00 400 mg PREOP FRANCISCA Administration Gabapentin 300 mg 03/30/24 06:00 03/30/24 06:32 Gabapentin 300 Mg Cap PO 03/30/24 16:00 300 mg PREOP FRANCISCA Administration Ringer's Solution 1,000 mls @ 30 mls/hr 03/30/24 06:00 IV 04/28/24 23:59 INFUSION FRANCISCA Cefazolin Sodium/Dextrose 2 gm in 50 mls @ 100 mls/hr 03/30/24 06:00 Ancef Duplex IVPB 03/30/24 16:00 PREOP FRANCISCA Tranexamic Acid/Sodium Chloride 1,000 mg in 100 mls @ 600 mls/hr 03/30/24 06:00 IVPB 03/30/24 16:00 PREOP FRANCISCA IV Miscellaneous Supplies 1 each 03/30/24 06:00 Iv Access IV 04/28/24 23:59 DIRECTED FRANCISCA Sodium Chloride 0 ml 03/30/24 06:00 Normal Saline Flush 10 Ml Syr IV 04/28/24 23:59 PRN PRN Sodium Chloride 0 ml 03/30/24 06:00 Normal Saline 10 Ml Vial IJ 04/28/24 23:59 DIRECTED PRN Sterile Water 0 ml 03/30/24 06:00 Water,Injection,Sterile 10 Ml Vial IJ 04/28/24 23:59 DIRECTED PRN PFSH Active Problems Active Problems: Problem Status Onset Code Tympanic atelectasis H73.899 Fracture of radial neck, right, closed 02/25/23 S52.131A Arthritis of right knee M17.11 Tendinitis of ankle or foot M77.50 Corns and callosity L84 Plantar wart B07.0 Acute foot pain M79.673 Medical History Medical History Vitamin D deficiency Migraines Family history of coronary artery disease Tendinitis of right elbow Arthralgia Displaced fracture of neck of unspecified radius, subsequent encounter for closed fracture with nonunion Anxiety Upper back pain Chronic neck and back pain Urinary frequency Narrowing of intervertebral disc space Ear anomaly History of meniscal tear Surgical History Surgical History H/O dilation and curettage History of colonoscopy History of knee surgery left knee Tobacco Smoking/Tobacco Use Status: Never Alcohol Alcohol Intake: current Alcohol intake frequency: holidays/special occasions only Substance Use Substance use: Never Details: alcohol: t-21 Vital Signs and Lab Results Vital Signs Most Recent Vital Signs in EMR: Most Recent Vital Signs Temp Pulse Resp BP Pulse Ox 36.3 C L 76 14 136/81 100 03/30/24 06:21 03/30/24 06:21 03/30/24 06:21 03/30/24 06:21 03/30/24 06:21 Lab Results Blood Type / Crossmatch: No Data to Display Complete Blood Count: No Data to Display Complete Metabolic Panel: No Data to Display Liver Function Panel: No Data to Display Coagulation Panel: No Data to Display Cardiac Panel: No Data to Display Arterial Blood Gas: No Data to Display Venous Blood Gas: No Data to Display Pancreas Panel: No Data to Display Thyroid Panel: No Data to Display Infectious Disease: No Data to Display Blood Cultures: No Data to Display Toxicology Panel: No Data to Display Anesthesia Assessment and Plan Anesthesia History Personal History: No History of Anesthesia Complications Family History: No Family History of Anesthesia Complications Exercise Tolerance Exercise Tolerance: Metabolic Equivalents>4 Pertinent Negatives Pertinent Negatives: No Symptoms of GERD Cardiac & Pulmonary Exam Cardiac Exam: Normal S1/S2 Heart Sounds Pulmonary Exam: Clear Bilateral Breath Sounds Implantable Cardiac Device Does patient have a Pacemaker or an ICD?: No Airway Exam Known Difficult Airway: No Mallampati Class: 2 Mouth Opening: Normal (> 3cm) Thyromental Distance: Greater than 3 cm Neck Range of Motion: Full ROM Neck Circumference: Normal Teeth Condition: Normal Dentition ASA Classification ASA Score: ASA 2 Emergency Case?: No NPO Status NPO Status: NPO Clears >2 hours, Solids >8 hours Anesthesia Plan Resuscitation Status: Full Code Anesthesia Technique: General Anesthesia Airway Planned: Endotracheal Tube Pain Management: Surgeon and patient request nerve block Monitors Used: Standard Monitors
[2024-03-30] MEDS: Lactated Ringers 1,000 ML 30 ML IV (06:40)
--- NOTE | 2024-03-30 07:05 | PDOC.DSDIS_ITS ---
Date of service: 03/30/24 Time of Service: 13:00 Discharge Plan Disposition Patient Disposition: Home Condition: Stable Discharge Details Attending Provider: Juan Jose Ramos Primary Care Provider: Galilea Fitzpatrick Home Meds and New Rx's Prescriptions: New aspirin 81 mg capsule 81 mg PO BID 30 Days Qty: 60 0RF naproxen 250 mg tablet 250 - 500 mg PO BID PRN (Reason: moderate pain and swelling) Qty: 40 0RF oxycodone 5 mg tablet 5 - 10 mg PO .q4-6h MDD 30 mg PRN (Reason: severe pain) Qty: 18 0RF Continued cholecalciferol (vitamin D3) 50 mcg (2,000 unit) capsule 50 mcg PO DAILY calcium carbonate [Calcium 600] 600 mg calcium (1,500 mg) tablet 600 mg PO DAILY duloxetine 30 mg capsule,delayed release(DR/EC) 30 mg PO DAILY sumatriptan succinate [Imitrex] 50 MG tablet 50 mg PO ONCE PRN Claritin-D 24 Hour 1 EACH tablet extended release 24 hr 1 PRN loratadine [Claritin] 10 mg tablet 10 mg PO DAILY PRN Discontinued celecoxib [Celebrex] 200 mg capsule 200 mg PO DAILY ibuprofen 200 MG capsule 400 mg PO TID PRN Patient Comments: 12/06/13-2 TABS TID Discharge Instructions Additional Instructions: Surgery: Right medial unicondylar knee replacement Activity: Weightbearing as tolerated. Recommend elevation to minimize swelling and discomfort. Walk as comfort allows. May use [crutches or walker] as needed for a few weeks. It is important to restore full knee extension as soon as possible. Gently increase knee flexion over the next few weeks. Do not rest with pillows behind knee to prevent knee from getting stuck bent. Encourage ankle pumps and wiggling toes to increase circulation. A physical therapy prescription will be sent electronically to begin in 2-3 weeks. Prescriptions: Aspirin 81 mg take 1 twice a day to prevent a blood clot 30 days, starting tomorrow Naproxen 250 mg take 1-2 every 12 hours with a meal as needed for moderate pain Oxycodone 5 mg take 1-2 every 4-6 hours as needed for severe pain You may use [id number] Tylenol (acetaminophen) as needed for mild pain. These pain medications may be taken all at once or in different combinations as needed. Also, recommend Colace (docusate) as a stool softener as surgery and pain medicine cause constipation. You may try xono-ops-ljaobdg diphenhydramine (Benadryl) 25-50 mg nightly as a sleep aid Dressings: Leave Band-Aid in place until follow-up. Keep clean and dry at all times. May remove Gabe wrap tomorrow. May re-wrap with Gabe wrap to help control swelling as needed. Follow-up: 10-[address] Ramos You may take off the leg compression Gabe wrap and stockings tomorrow at home. You may also leave them on a few days longer if you have a history of leg swelling or edema. Let us know right away if you develop any redness, drainage, fevers, chest pain, or trouble breathing. Do not drink alcohol or drive for at least 24 hours after anesthesia. Please call the office during business hours with any questions or concerns. Stand Alone Forms: Anesthesia Discharge Inst., Anes.Nerve Block Instructions, Madiha Crowley (DSU) Referrals: Juan Jose Ramos MD [ [facility] STAFF PHYSICIAN] - 04/10/24 2:30 pm Discharge Orders Discharge Orders: Discharge Order (Routine); Ordered 03/30/24 Ordered By: Cassidy Falcon DS: Diagnosis Discharge Diagnosis (1) Arthritis of right knee: Status: Acute
--- NOTE | 2024-03-30 07:29 | W.PM.OP ---
Date of service: 03/30/24 Time of Service: 07:30 Operative Note Operative Note DATE OF PROCEDURE: 03/30/24 PRE-OP DIAGNOSIS: Right knee medial compartmental arthritis POST-OP DIAGNOSIS: same PROCEDURE: Right knee medial unicompartmental arthroplasty, CPT # 61595 The social science research assistant was medically required as this procedure involves retraction, protection of neurovascular structures, and manipulation of multiple instruments and implants at the same time, which cannot be done without a skilled social science research assistant. SURGEON: Juan Jose Ramos [employer]AM TRUCK DRIVER: Cassidy Falcon ANESTHESIA TYPE: Local By Surgeon, General LMA/ETT and Primary Nerve Block Refer to Anesthesia Record ESTIMATED BLOOD LOSS: 75 TOURNIQUET TIME: 0 COMPLICATIONS: None Patient was transported to: PACU Patient's condition: stable Implants: [employer] Sigma HP partial knee size 2 metal-backed tibial tray, 7 mm tibial insert fixed bearing, size 3 femoral component Indications: Please see complete medical record for details. Findings: Isolated medial compartment arthritis. Intact ACL. Procedure Description: The patient was taken to the operating room and transferred to the operating room table. [Spinal] anesthesia was induced. All bony prominences were well-padded. Preoperative antibiotics and 1 g TXA were administered. A tourniquet was placed loosely over padding high on the patient's thigh. The knee and lower extremity were prepped and draped in the usual sterile fashion. The correct patient, procedure, and side of the procedure were all verified prior to incision. A slightly medial of midline longitudinal approach was preinjected with 0.5% bupivacaine containing epinephrine and then used to the knee extending from the superior pole the patella to the distal aspect of the tibial tubercle. The quadriceps tendon, patella borders, and patellar tendon were exposed. A full-thickness arthrotomy was performed starting splitting the quadriceps tendon and leaving a sleeve of tissue on the medial aspect of the patella and taking care to progress along the medial margin the patellar tendon. The MCL was elevated off the proximal medial tibia. The tibial alignment jig was set in place on the anterior medial aspect of the tibia and carefully adjusted to achieve proper alignment in the coronal and sagittal planes. Reciprocating saw was used to create the vertical cut at the medial aspect of the medial tibial eminence taking care to protect the ACL ligament footprint. The transverse cut was then done using the microsagittal saw through the jig taking care to retract and protect the MCL. The bone piece and cut were inspected and found to be appropriate for patient anatomy. A box rasp was used to clean up the cut especially the L component. The 7 mm spacer block was inserted and found to have good stability in full extension, mild flexion, but slightly tight in 90 degrees of flexion. The tibial trial spacer block was used to darrell the rotational alignment and anterior extent of the femoral component. The spacer block was removed and the tibia was sized with the depth gauge. The distal femoral cutting block was inserted taking care to orient it appropriately. The cut was done using the saw through the guide. The posterior cutting block, +1 mm up selected to equalize the tighter flexion with the extension gap, was then applied to the distal cut, ensured to be flush, rotation set, and it was pinned in place. The posterior cut was completed through the guide. The guide was removed, and the femur was sized with the femoral sizing blocks. The appropriate sized cutting jig was selected. Care was taken to ensure the block was flush with the resected distal and posterior femur bone surfaces. A curved gouge was used to cut the profile of the proximal tip of the femoral prosthesis, darrell the extent of the anterior chamfer cut, and prevent trochlear cartilage delamination. The anterior cut was done using the osteotomes, the drill was used to drill the 2 peg holes, and the posterior chamfer cut was done through the jig with the saw. This last cutting block and bone cuts were removed. The medial meniscus remnant was removed. The femoral component trial was placed on the distal femur and the 7 mm spacer block confirmed appropriate balancing in flexion, extension, and almost 2 mm of medial joint space opening in about 20 degrees of flexion. Tibial template was inserted and the size confirmed to be appropriate. The keel was used by hand to remove bone from the slot and the tibial peg drill was used in the peg hole. The pulse lavage was used to clean the bone surfaces. SmartSet medium viscosity cement was prepared. At the appropriate time during the early working phase, the cement was applied to the backside of the tibial and femoral components. Then, cement was carefully placed and pressurized into the proximal tibia taking care to only have minimal cement posteriorly. The tibial component was inserted at an angle and then impacted directing pressure from posterior to anterior to keep the flow of cement from posterior to anterior. Cement was then applied to the distal femur and the femoral component impacted. Excess cement was removed. The knee was brought into full extension and this position with axial load was maintained until the cement was completely hardened at 18 minutes. A combination R.E.C.K. (123 mg Ropivacaine, 0.25 mg Epinephrine, 0.04 mg Clonidine, and 15 mg Ketorolac) 50 ml injection was widely infiltrated about the knee. The wound was copiously irrigated with the pulse lavage and Surgiphor. Tibial tray head of ict was removed, and the final tibial insert was inserted and clicked into place. The knee was tested through range of motion found to be stable with equal balancing from full extension to flexion past 90 degrees and a couple millimeters of medial joint space opening in 20-30 degrees of flexion. Appropriate hemostasis was achieved. The capsule was approximated using #1 Vicryl in a figure-of-8 interrupted fashion and then closed using Stratafix #1 PDS barbed suture in a running fashion. The superficial layers were irrigated. Subcutaneous tissue was closed using 2-0 Monocryl in a buried interrupted fashion. Skin was closed using 3-0 Monocryl in a buried subcuticular fashion. The skin incision was glued and then covered with a Mepilex Ag dressing. An Gabe wrap was applied from the foot up to the thigh. The patient awoke from anesthesia without complication was transferred to the recovery room in stable condition.
[2024-03-30] MEDS: TRANEXAMIC ACID/SOD. CHL. 1,000 MG/100 ML BAG 600 MG IVPB (07:36)
[2024-03-30] MEDS: ceFAZolin 2 GM/50 ML BAG IVPB (07:38)
--- NOTE | 2024-03-30 07:58 | W.ANESNERVE ---
Nerve Block Single Injection Procedure Date and Time Date Performed: 03/30/24 Procedure Start: 07:15 Location Where Procedure Performed Procedure Location: Day Surgery Unit Reason Performed: Postoperative Analgesia Requesting Provider: Juan Jose Ramos Timeout Performed Timeout Performed: Yes Monitoring Used ECG, Blood Pressure and SpO2 Sterility Sterility: Hand Hygiene, Surgical Cap, Surgical Mask, Sterile Gloves and Chlorhexidine Sedation Given During Procedure Sedation Given (Indicate Dose Given): Versed IV Dose:: 2 mg Patient Mental Status Patient Mental Status: Sedate with meaningful communication Nerve Block 1st Nerve Block: Laterality: Right Block Type: Adductor Canal Ultrasound Image Saved?: Yes Needle / Catheter Used: 100mm SonoPlex II Local Anesthetic Bolus (Indicate Dose Given): Lidocaine used for local infiltration of skin, Injected in 3-5ml increments after negative blood aspiration and Bupivacaine 0.25% Dose:: 15 ml Additives (Indicate Dose Given): Normal Saline (hydrodissection) Ultrasound: Sterile probe cover and gel used Nerve Stimulator: Supplement to Ultrasound use and No twitch or parasthesia noted < 0.5 mA Paresthesia: None Procedure Tolerated: No Complications and Patient tolerated well Procedure Outcome: Successful Performed By: Alejandro Oliver
[2024-03-30] MEDS: Bupivacaine 0.25% Pres-Free W/EPI 30 ML VIAL (08:27)
[2024-03-30] MEDS: ceFAZolin 1 GM/50 ML BAG IVPB (11:16)
[2024-03-30] MEDS: fentaNYL 100 MCG/2 ML VIAL IVP ×2 (11:17→11:27)
--- NOTE | 2024-03-30 11:30 | DI.RAD_ITS ---
Exam(s) XR KNEE RT 2V AP,LAT EXAM: XR KNEE RT 2V AP,LAT CLINICAL HISTORY: knee arthritis. TECHNIQUE: 2D digital imaging was performed of the right knee. Three views obtained. AP and lateral views were obtained. COMPARISON: CR XR KNEE RT 3V AP,LAT,KATELIN from 02/11/2023 CR XR STANDING ALIGNMENT from 10/25/2023 FINDINGS: The patient is now status post partial right knee replacement. The orthopedic hardware appears in go od position. The bones are intact. Postsurgical changes are seen in the soft tissues. IMPRESSION: Status post partial right knee replacement. DATA REPOSITORY: RADIATION DOSE DELIVERED:
[2024-03-30] MEDS: Lactobacillus Acidophilus CAP 1 CAP PO (12:25)
--- NOTE | 2024-03-30 13:38 | PT.INIE ---
Date of service: 03/30/24 Time of Service: 13:00 PT Notes Date: 03/30/24 Referring Doctor: Juan Jose Ramos MD PT Orders: PT CONSULT: S/P ortho surgery Precautions: WBAT, standard Patient Profile/Admitting Diagnosis: 58 y o female S/P R partial TKR today. Social History/Home Situation: Lives in a private home with , who will be available to support her. She has 2 steps two enter with bilateral rail, and can reside on one level with bedroom and bathroom. Step over tub, but has a shower chair. 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 Equipment Owned/DME: Shower chair Subjective: Feeling good, minimal pain. Looking forward to getting up and moving, ready to use the bathroom. 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 Objective: General Observation: Lying in hospital bed, good color, pleasant, is present Mental Status: A & O x 3 ROM: Right Upper Extremity: WNL Left Upper Extremity: WNL Right Lower Extremity: R knee 0-80 deg with dallin bandage donned. Otherwise WNL Left Lower Extremity:WNL Strength: Right Upper Extremity: WNL Left Upper Extremity: WNL Right Lower Extremity: Has full motorical control, resistance MMT not completed of knee, full strength of ankle, hip flexors. Left Lower Extremity: WNL Bed Mobility/Transfers: Supervision with supine to EOB Supervision with Sit to stand at RW and vice versa Supervision with ambulation at RW x 40 ft CG with step to stair navigation, with cues for up good, down bad. 2 6 up and down, 2 4 up and down, summer rails Supervision on/off toilet, and with self hygiene Gait: 40 ft, RW, decreased stance appropriately R LE, good stride length and stability Balance: Static Sitting: Good Dynamic Sitting: Good Static Standing: Good with RW Dynamic Standing: Good with RW Patient Education: advised on proper stair navigation, appropriate RW use (recommend for at least 1 week, weaning off as tolerated), use seated leg swing over w assist to enter shower, sit or stand for shower per tolerance at ortho clearance, returning to work prior to 2 weeks not recommended, follow up with PT as advised per Dr Ramos, provided contact info for any further concerns/questions, NO pillow under knee, only lower leg and ankle. Treatment: Initial evaluation [id number] Therapeutic Procedures: Skilled exercise prescription for ROM, strengthening, and flexibility specific to patients problem HEP Instruction: Heel slides QS SLR seated march ankle pumps Gait training: Proper stair navigation technique with bilateral rail, requires step to pattern instruction, rail use, and RW maneuvering, supervision Informed Consent/Education: Patient instructed in purpose of PT consult and plan of care. Assessment: Patient is a 58 year old female referred to physical therapy services with reason for PT evaluation of S/P partial L TKR 03/30/24. Evaluation ordered for assessment for AD utilization, and safety for return home. She demonstrates safe transfers, bed mobility, household distance ambulation and stair navigation to suit her home environment, demonstrating proper use of RW with ambulation and transfers, and is safe for return home with the supervision of her . Her also demonstrates understanding of supervision, stair navigation technique, knee extension maintenance and HEP understanding to assist his . Patient is assessed as low complexity based on the following: History: Per EMR Examination: R knee mobility deficit post TKR, dependence of RW and supervision for ambulation and transfers Presentation: Stable Decision Making: easy Plan of Care/Treatment Plan: DISCHARGE RECOMMENDATIONS: Home with with RW for safety and to prevent falls, and report to outpatient PT per ortho recommendations. Direct treatment time 40min Total treatment time 40min Units Time 61223 1 Manual therapy (66140) min Therapeutic Procedures (33973) 1 15min Neurological Reeducation (37894) min Therapeutic Activity (65712) min DNI min Gait training 10min Milagro Sanchez, [facility]
--- NOTE | 2024-03-30 13:40 | W.ANESPOSTOP ---
Postoperative Evaluation Date, Time and Location Date Performed: 03/30/24 Time Performed: 13:40 Patient Location: Day Surgery Unit Vital Signs Most Recent Imported Vital Signs: Most Recent Vital Signs Temp Pulse Resp BP Pulse Ox 36.3 C L 84 18 150/78 H 99 03/30/24 13:20 03/30/24 13:20 03/30/24 13:20 03/30/24 13:20 03/30/24 13:20 Pain Score Most Recent Pain Score: Most Recent Pain Score Pain Level 6 03/30/24 13:20 Assessment Mental Status: Awake (Alert & Oriented to Patient Baseline) Airway and Respiratory Function: Patent airway with normal (patient baseline) respiratory exam Cardiovascular Function: Hemodynamically Stable Hydration Status: Adequately Hydrated Nausea & Vomiting: No Nausea or Vomiting Pain: Pt. Denies Any Pain Peripheral Nerve Block: Regional nerve block not resolved at time of post operative discharge
== END 2024-03-30 14:35 | disposition home or self-care (01) ==
PROVIDERS: PCP Nurse Practitioner Family; Visit Provider Student in an Organized Health Care Education/Training Program
PROC: (CPT 27446; principal; 2024-03-30 07:30)
DX: M17.11 Unilateral primary osteoarthritis, right knee (principal)
CPT/HCPCS: 27446; 76942; 97110; 97161; 73560; C1776; J0665; J0690; J1100; J2250; J2405; J2704; J3010

== ENCOUNTER 2024-04-10 15:40 | Outpatient (CLI) | payer OTHER, SELFPAY ==
--- NOTE | 2024-04-10 14:30 | DI.RAD_ITS ---
Exam(s) XR KNEE RT 2V AP,LAT EXAM: XR KNEE RT 2V AP,LAT INDICATION: F/U RIGHT UKA. COMPARISON: CR XR KNEE RT 2V AP,LAT from 03/30/2024 TECHNIQUE: 2D digital imaging was performed. Two views. FINDINGS: Medial femoral tibial joint space prosthesis is again noted. No abnormal surrounding lucencies. The alignment is unchanged. Mild soft tissue edema. Impression: Stable post surgical appearance. DATA REPOSITORY: RADIATION DOSE DELIVERED:
== END 2024-04-10 15:41 | disposition home or self-care (01) ==
LOC: DIORS 15:40
PROVIDERS: PCP Nurse Practitioner Family; Visit Provider Student in an Organized Health Care Education/Training Program
DX: Z47.1 Aftercare following joint replacement surgery (principal); Z96.651 Presence of right artificial knee joint
CPT/HCPCS: 73560

== ENCOUNTER 2024-05-08 14:30 | Outpatient (CLI) | payer OTHER, SELFPAY ==
--- NOTE | 2024-05-08 08:15 | DI.RAD_ITS ---
Exam(s) XR KNEE RT 2V AP,LAT EXAM: XR KNEE RT 2V AP,LAT INDICATION: F/U RIGHT UKA. COMPARISON: CR XR KNEE RT 2V AP,LAT from 04/10/2024 TECHNIQUE: 2D digital imaging was performed. Two views. FINDINGS: Stable appearance of medial femoral tibial joint space prosthesis. No abnormal bony lucencies. No j oint effusion. DATA REPOSITORY: RADIATION DOSE DELIVERED:
== END 2024-05-08 14:31 | disposition home or self-care (01) ==
LOC: DIORS 14:30
PROVIDERS: PCP Nurse Practitioner Family; Visit Provider Student in an Organized Health Care Education/Training Program
DX: M17.11 Unilateral primary osteoarthritis, right knee (principal)
CPT/HCPCS: 73560

== ENCOUNTER 2024-07-03 15:39 | Outpatient (CLI) | payer MEDICAID, SELFPAY ==
--- NOTE | 2024-07-03 08:45 | DI.RAD_ITS ---
Exam(s) XR KNEE RT 2V AP,LAT EXAM: XR KNEE RT 2V AP,LAT INDICATION: F/U RIGHT UKA. COMPARISON: CR XR KNEE RT 2V AP,LAT from 05/08/2024 TECHNIQUE: 2D digital imaging was performed. Two views. FINDINGS: Stable alignment medial femoral tibial joint space prosthesis. Lateral femoral tibial joint space is maintained. Mild spurring at the patellofemoral joint. Impression: Stable postoperative appearance. DATA REPOSITORY: RADIATION DOSE DELIVERED:
== END 2024-07-03 15:40 | disposition home or self-care (01) ==
LOC: DIORS 15:39
PROVIDERS: PCP Nurse Practitioner Family; Visit Provider Student in an Organized Health Care Education/Training Program
DX: M17.11 Unilateral primary osteoarthritis, right knee (principal)
CPT/HCPCS: 73560

== ENCOUNTER 2024-10-01 06:59 | Day surgery (SDC) | payer MEDICAID, SELFPAY ==
--- NOTE | 2024-09-30 16:46 | PDOC.DSDIS_ITS ---
Date of service: 10/01/24 Time of Service: 08:54 Discharge Plan Disposition Patient Disposition: Home Condition: Good Discharge Details Reason For Visit: screening colonoscopy Attending Provider: Wilner Arana Primary Care Provider: Galilea Fitzpatrick Home Meds and New Rx's Prescriptions: Continued cholecalciferol (vitamin D3) 50 mcg (2,000 unit) capsule 50 mcg PO DAILY calcium carbonate [Calcium 600] 600 mg calcium (1,500 mg) tablet 600 mg PO DAILY duloxetine 30 mg capsule,delayed release(DR/EC) 30 mg PO DAILY celecoxib [Celebrex] 100 mg capsule 100 mg PO DAILY sumatriptan succinate [Imitrex] 50 MG tablet 50 mg PO ONCE PRN Claritin-D 24 Hour 1 EACH tablet extended release 24 hr 1 tab PO DAILY PRN Discontinued polyethylene glycol 3350 17 gram/dose powder 238 g PO ONCE Qty: 238 0RF Rx Instructions: take per colonoscopy instructions bisacodyl [Dulcolax (bisacodyl)] 5 mg tablet,delayed release (DR/EC) 5 mg PO ONCE Qty: 4 0RF Rx Instructions: take per colonoscopy instructions Discharge Instructions Instructions: Colon polyps Additional Instructions: Veda, is very nice seeing you today, and I hope you are comfortable during the colonoscopy. Everything went very smoothly. I did find to remove 3 polyps today. All of these were quite small, and have any features that are worrisome to indicate active. These will all be sent off for testing, because polyps, imaging from varieties, and we will use that information to administrative law judge the timing of your next colonoscopy. Those results usually take a week or 2, but once the office has them, we will be in touch with those recommendations. If you need anything, or have any questions in the meantime, please do not hesitate to ask. 1. If tolerated, consume a soft, low fiber diet for 1-2 days. 2[address] Do not drive, drink alcohol, operate machinery, make critical decisions, or do activities that require coordination or balance for 24 hours. 3. Because air was put into your colon during the procedure, expelling air from your rectum (passing gas or farting) is normal. 4. You may not have a bowel movement for 1-3 days because of the colonoscopy prep. This is normal. 5. Go directly to the emergency room if you notice any of the following: Develop chills (warm to touch), or if you have a thermometer and your temperature is above 101 Difficulty breathing or difficultly swallowing Persistent vomiting Severe abdominal pain, other than gas cramps Severe chest pain Black, tarry stools Any bleeding ? exceeding one tablespoon 6. Call your physician if the site where your intravenous was started becomes red, swollen, painful, and warm to touch. 7. Your physician has reviewed your pre-procedure medications. Please continue to take those medications as previously ordered. You will be given specific information/education regarding any changes to your medications before leaving. Stand Alone Forms: Anesthesia Discharge InstMadiha Strickland (DSU) Activity:: Activity as Tolerated Diet:: As Tolerated Discharge Orders Discharge Orders: Discharge Order (Routine); Ordered 09/30/24 Ordered By: Wilner Arana DS: Diagnosis Discharge Diagnosis (1) Encounter for screening colonoscopy: Status: Acute Asessment and Plan: Follow-up on polypectomy results
--- NOTE | 2024-09-30 16:47 | W.COLOREPORT ---
Date of service: 10/01/24 Time of Service: 08:55 Colonoscopy Report Date of procedure: 10/01/24 Pre-op diagnosis general: screening colonoscopy Post-op diagnosis procedure note: other (Colorectal polyps) Procedure: colonoscopy with polypectomy Surgeon: Wilner Arana Anesthesia Type: General:No Airway Estimated blood loss (mL): 5 Pathology: other (0.25 cm rectal polyps x 2, 0.5 cm polyp at 65 cm) Complications: None Disposition: same day Indications: Veda is a 58 year old woman with a history of adenomatous polyps who needs her next screening colonoscopy Prep: Miralax/Dulcolax Procedure Start Time: :24 Procedure End Time: 08:47 Retraction Time: 12 Findings: 0.25 cm rectal polyps x 2, 0.5 cm polyp at 65 cm Procedure Description: After the induction of anesthesia, and with the patient in left lateral decubitus position, I began by performing an external anorectal exam.? Perineum and skin were normal, as was the anal verge.? There was no evidence of external hemorrhoids.? Next, I performed a digital rectal exam.? I did not appreciate any abnormal findings.? Next, I advanced a colonoscope into the rectal vault.? I performed retroflexion.? This appeared normal. The midportion of the rectal vault were 2 polyps. These were immediately adjacent to 1 another. Each of these was less than 0.25 cm, and each was flat. Both of these polyps were removed with cold forceps, and sent as a single specimen. There is minimal bleeding from the site. Using insufflation, I then advanced the colonoscope beyond the rectal folds and into the sigmoid colon before advancing towards the cecum.? The quality of the prep was excellent.? The scope was noted to be in the cecum by identification of the ileocecal valve and appendiceal orifice.? I then began withdrawing the colonoscope using repeated irrigation as necessary for full evaluation of the colonic mucosa. Around 65 cm from the anal verge I identified a 0.25 cm polyp. ?It appeared flat in character. ?I was able to remove this with a cold forcep polypectomy. ?I examined the site, and there was minimal bleeding. ?Once this was completed, I continued to withdraw the scope and examine the remainder of the colonic mucosa.?Once the scope was withdrawn to the level of the rectum, great care was taken to examine portions of the rectal folds.? Finally, the scope was withdrawn and the patient was brought to the same-day surgery recovery unit as the anesthetic wore off. ?The findings and instructions were shared with the patient prior to discharge. Homestead Bowel Prep Homestead Bowel Prep Right Colon: 3 Left Colon: 3 Transverse Colon: 3 Total Score: 9
[2024-10-01 07:11] VITALS: BP 145/80; PULSE 76; RESP 16; TEMP 36.4; O2SAT 98
[2024-10-01] MEDS: Normal Saline Flush 10 ML SYR IV (07:35)
--- NOTE | 2024-10-01 08:13 | W.ANESPRE ---
General Info Date of Service Date Performed: 10/01/24 Height: 5 ft 5.5 in Weight: 80 kg Body Mass Index (BMI): 28.9 Surgical Procedure: Operation Date: 10/01/24 08:20 Proposed Procedure Side Surgeon p Colonoscopy Wilner Arana MD Actual Procedure Side Surgeon p Colonoscopy Wilner Arana MD Pre-Op Diagnosis Post-Op Diagnosis screening colonoscopy Meds Allergies and Home Medications Allergies Allergy/AdvReac Type Severity Reaction Status Date / Time No Known Allergies Allergy Verified 10/01/24 07:18 Home Medication ?Medication ?Instructions ?Recorded sumatriptan succinate 50 mg tablet 50 mg PO ONCE PRN 12/06/13 (Imitrex) loratadine-pseudoephedrine ER 10 1 tab PO DAILY PRN 07/25/15 mg-240 mg tablet,extended [id number] (Claritin-D 24 Hour) calcium carbonate (Calcium 600) 600 mg PO DAILY 09/02/22 cholecalciferol (vitamin D3) 50 50 mcg PO DAILY 09/02/22 mcg (2,000 unit) capsule duloxetine 30 mg capsule,delayed 30 mg PO DAILY 10/25/23 release celecoxib 100 mg capsule (Celebrex) 100 mg PO DAILY 07/03/24 Current Visit Medications: Current Medications Generic Name Dose Route Start Last Admin Trade Name Freq PRN Reason Stop Dose Admin Ringer's Solution 1,000 mls @ 80 mls/hr 10/01/24 06:00 IV 10/01/24 23:59 INFUSION FRANCISCA IV Miscellaneous Supplies 1 each 10/01/24 06:00 Iv Access IV 10/01/24 23:59 DIRECTED FRANCISCA Ondansetron HCl 4 mg 09/30/24 16:48 Ondansetron 4 Mg/2 Ml Vial IVP 10/30/24 16:47 Q4H PRN PRN Nausea / Vomiting Sodium Chloride 0 ml 10/01/24 06:00 Normal Saline Flush 10 Ml Syr IV 10/01/24 23:59 PRN PRN Sodium Chloride 0 ml 10/01/24 06:00 Normal Saline 10 Ml Vial IJ 10/01/24 23:59 DIRECTED PRN Sterile Water 0 ml 10/01/24 06:00 Water,Injection,Sterile 10 Ml Vial IJ 10/01/24 23:59 DIRECTED PRN PFSH Active Problems Active Problems: Problem Status Onset Code Encounter for screening colonoscopy Acute Z12.11 Tympanic atelectasis Acute H73.899 Fracture of radial neck, right, closed Acute 02/25/23 S52.131A Arthritis of right knee Acute M17.11 Tendinitis of ankle or foot Acute M77.50 Corns and callosity Acute L84 Plantar wart Acute B07.0 Acute foot pain Acute M79.673 Medical History Medical History (Updated 10/01/24 @ 07:20 by Lizbeth Soto) Vitamin D deficiency Migraines Family history of coronary artery disease Tendinitis of right elbow Arthralgia Displaced fracture of neck of unspecified radius, subsequent encounter for closed fracture with nonunion R arm Anxiety Upper back pain Chronic neck and back pain Urinary frequency Narrowing of intervertebral disc space Ear anomaly History of meniscal tear Surgical History Surgical History (Updated 10/01/24 @ 07:20 by Lizbeth Soto) Hx of total knee replacement (R) partial H/O dilation and curettage History of colonoscopy History of knee surgery left knee, pt denies Tobacco Smoking/Tobacco Use Status: Never Alcohol Alcohol Intake: current Alcohol intake frequency: holidays/special occasions only Substance Use Substance use: Never Substance use type: does not use Details: alcohol: t-21 Vital Signs and Lab Results Vital Signs Most Recent Vital Signs in EMR: Most Recent Vital Signs Temp Pulse Resp BP Pulse Ox 36.4 C L 76 16 145/80 H 98 10/01/24 07:11 10/01/24 07:11 10/01/24 07:11 10/01/24 07:11 10/01/24 07:11 Lab Results Blood Type / Crossmatch: No Data to Display Complete Blood Count: No Data to Display Complete Metabolic Panel: No Data to Display Liver Function Panel: No Data to Display Coagulation Panel: No Data to Display Cardiac Panel: No Data to Display Arterial Blood Gas: No Data to Display Venous Blood Gas: No Data to Display Pancreas Panel: No Data to Display Thyroid Panel: No Data to Display Infectious Disease: No Data to Display Blood Cultures: No Data to Display Toxicology Panel: No Data to Display Anesthesia Assessment and Plan Anesthesia History Personal History: No History of Anesthesia Complications Family History: No Family History of Anesthesia Complications Exercise Tolerance Exercise Tolerance: Metabolic Equivalents>4 Pertinent Negatives Pertinent Negatives: No Symptoms of GERD Cardiac & Pulmonary Exam Cardiac Exam: Normal S1/S2 Heart Sounds Pulmonary Exam: Clear Bilateral Breath Sounds Implantable Cardiac Device Does patient have a Pacemaker or an ICD?: No Airway Exam Known Difficult Airway: No Mallampati Class: 2 Mouth Opening: Normal (> 3cm) Thyromental Distance: Greater than 3 cm Neck Range of Motion: Full ROM Neck Circumference: Normal Teeth Condition: Normal Dentition ASA Classification ASA Score: ASA 2 Emergency Case?: No NPO Status NPO Status: NPO Clears >2 hours, Solids >8 hours Anesthesia Plan Resuscitation Status: Full Code Anesthesia Technique: General Anesthesia Airway Planned: Natural Airway Monitors Used: Standard Monitors
[2024-10-01 08:14] VITALS: BMI 28.9
--- NOTE | 2024-10-01 08:25 | BOWEL_PTH ---
PATIENT: Veda Le LOC: [facility] U#:[id number] AGE/SX: 58/F ROOM: RE10/01/[address]: Wilner Arana MD : [id number] BED: DIS: 10/01/2024 SPEC #: [id number] RECD: 10/01/24 12:45 STATUS: JUSTINO REQ #: [id number] JOEL: 10/01/24 08:[address]: Wilner Arana DEPT: Surgical Specimen RECD BY: Marina Longoria ENTERED: 10/01/24 12:46 SP TYPE: Bowel OTHR DR: Galilea Fitzpatrick Tissues: 1 - BIOPSY BOWEL 2 - BIOPSY BOWEL Procedures: GROSS AND MICRO LEVEL 4 Comments: [id number]
[2024-10-01 08:52] VITALS: BP 119/90; PULSE 83; RESP 16; TEMP 36.4; O2SAT 99
--- NOTE | 2024-10-01 08:58 | W.ANESPOSTOP ---
Postoperative Evaluation Date, Time and Location Date Performed: 10/01/24 Time Performed: 08:58 Patient Location: Day Surgery Unit Vital Signs Most Recent Imported Vital Signs: Most Recent Vital Signs Temp Pulse Resp BP Pulse Ox 36.4 C L 83 16 119/90 99 10/01/24 08:52 10/01/24 08:52 10/01/24 08:52 10/01/24 08:52 10/01/24 08:52 Pain Score Most Recent Pain Score: Most Recent Pain Score Pain Level 0 10/01/24 07:11 Assessment Mental Status: Awake (Alert & Oriented to Patient Baseline) Airway and Respiratory Function: Patent airway with normal (patient baseline) respiratory exam Cardiovascular Function: Hemodynamically Stable Hydration Status: Adequately Hydrated Nausea & Vomiting: No Nausea or Vomiting Pain: Pt. Denies Any Pain Peripheral Nerve Block: Patient did not receive a nerve block
[2024-10-01 09:17] VITALS: BP 127/87; PULSE 80; RESP 16; TEMP 36.8; O2SAT 99
== END 2024-10-01 09:30 | disposition home or self-care (01) ==
LOC: SUR 07:00
PROVIDERS: PCP Nurse Practitioner Family; Visit Provider Surgery
PROC: 0DJD8ZZ Inspection of Lower Intestinal Tract, Via Natural or Artificial Opening Endoscopic (ICD-10-PCS; CPT 45378; principal; 2024-10-01 08:15)
DX: Z12.11 Encounter for screening for malignant neoplasm of colon (principal); K62.1 Rectal polyp; D12.4 Benign neoplasm of descending colon
CPT/HCPCS: 45380; 88305; J2003; J2704

== ENCOUNTER 2024-10-19 15:21 | Outpatient (REF) | payer MEDICAID, SELFPAY ==
[2024-10-19 16:11] LABS: HGB 13.5 g/dL (11.2-15.7); MCH 29.2 pg (27.0-33.0); MCHC 33.8 % (32.0-36.0); MCV 86 fL (80-95); MPV 11.1 fL (8.0-11.0); Platelet Count 279 10^3/uL (130-400); RBC 4.63 10^6/uL (3.93-5.22); RDW 13.3 % (11.7-14.6); RDW-SD 41.7 fL; WBC 6.07 10^3/uL (4.4-10.8)
[2024-10-19 17:01] LABS: ALT 25 U/L (14-59); AST 18 U/L (15-37); Albumin 3.9 g/dL (3.4-5.0); Alkaline Phosphatase 81 U/L (46-116); BUN 16 mg/dL (7-18); Bilirubin, Total 0.47 mg/dL (0.2-1.0); CREATININE 0.7 mg/dL (0.55-1.02); Calcium 9.6 mg/dL (8.5-10.1); Calculated LDL 111 mg/dL (<100); Chloride 104 mmol/L (98-107); Cholesterol 213 mg/dL (<200); Estimated GFR 101.44 (mL/min/1.73m2); Glucose 81 mg/dL (74-106); HDL Cholesterol 90 mg/dL (40-60); Potassium 4.3 mmol/L (3.5-5.1); Sodium 140 mmol/L (136-145); Total Protein 7.4 g/dL (6.4-8.2); Triglyceride 62 mg/dL (<150); Vitamin D 25 Total 56.8 ng/mL (30-100)
== END 2024-10-19 15:22 | disposition home or self-care (01) ==
LOC: NCHCN 15:21
PROVIDERS: PCP Nurse Practitioner Family; Visit Provider Nurse Practitioner Family
DX: Z00.00 Encounter for general adult medical examination without abnormal findings (principal); E55.9 Vitamin D deficiency, unspecified
CPT/HCPCS: 80053; 80061; 82306; 85027

== ENCOUNTER 2024-12-17 00:37 | Outpatient (CLI) | payer MEDICAID, SELFPAY ==
--- NOTE | 2024-12-17 | DI.MAMMO_ITS ---
Exam(s) MAMMO SCREENING EXAM: MAMMO SCREENING CLINICAL HISTORY: Screening, Z12.39 TECHNIQUE: Mammograms were interpreted according to the usual protocol including computer analysis w [employer] CAD system, tomosynthesis and C-view imaging. COMPARISON: 2014 through 2022 FINDINGS: The breasts are composed of scattered fibroglandular densities, Breast Density category B. No suspicious masses or suspicious microcalcifications are seen. No skin thickening or abnormal axillary lymph nodes are seen. There has been no significant change from prior exams. IMPRESSION: BI-RADS Category 1, Negative mammogram Yearly screening mammography is recommended. Breast Density - Category B, scattered fibroglandular densities. A negative radiographic report should not delay biopsy if a dominant or clinically suspicious mass is present. Up to ten percent of cancers are not identified on mammography. A negative report may reinforce clinical impression. Adenosis and dense breasts may obscure an underlying neoplasm. False positive reports average 6 to 10%. Patient will receive a letter notifying them of these results.
== END 2024-12-17 00:57 ==
PROVIDERS: PCP Nurse Practitioner Family; Visit Provider Nurse Practitioner Family
DX: Z12.31 Encounter for screening mammogram for malignant neoplasm of breast (principal); R92.323 Mammographic fibroglandular density, bilateral breasts
CPT/HCPCS: 77063; 77067

== ENCOUNTER 2025-10-30 10:05 | Outpatient (REF) | payer MEDICAID, SELFPAY ==
[2025-10-30 15:01] LABS: Abs Immature Grans 0.02 10^3/uL (0.0-0.06); HCT 42.0 % (36.0-46.0); HGB 13.5 g/dL (11.2-15.7); Immature Grans % 0.4 %; MCH 27.8 pg (27.0-33.0); MCHC 32.1 % (32.0-36.0); MCV 86 fL (80-95); MPV 11.0 fL (8.0-11.0); Platelet Count 311 10^3/uL (130-400); RBC 4.86 10^6/uL (3.93-5.22); RDW 13.3 % (11.7-14.6); RDW-SD 42.1 fL; WBC 5.00 10^3/uL (4.4-10.8)
[2025-10-30 15:26] LABS: Hemoglobin A1C 5.3 % (<5.7)
[2025-10-30 15:29] LABS: Vitamin D 25 Total 61 ng/mL (30-100)
[2025-10-30 15:33] LABS: ALT 18 U/L (10-49); AST 18 U/L (<34); Albumin 4.3 g/dL (3.2-5.0); Alkaline Phosphatase 99 U/L (46-116); Anion Gap 9 mmol/L (3-11); BUN 18 mg/dL (9-23); Bilirubin, Total 0.7 mg/dL (0.2-1.2); CO2 29.0 mmol/L (20.0-31.0); Calcium 9.8 mg/dL (8.3-10.6); Chloride 104 mmol/L (98-107); Glucose 78 mg/dL (74-106); Potassium 4.7 mmol/L (3.5-5.1); Sodium 142 mmol/L (136-145); Total Protein 7.3 g/dL (5.7-8.2)
== END 2025-10-30 10:06 | disposition home or self-care (01) ==
LOC: NCHCN 10:05
PROVIDERS: PCP Nurse Practitioner Family; Visit Provider Nurse Practitioner Family
DX: Z00.00 Encounter for general adult medical examination without abnormal findings (principal); E55.9 Vitamin D deficiency, unspecified; Z68.30 Body mass index [BMI] 30.0-30.9, adult
CPT/HCPCS: 80053; 82306; 83036; 85025